=== PATIENT | male | born 1965 | race Caucasian/White ===

== ENCOUNTER 2018-06-15 09:27 | Outpatient (REF) | payer BC, SELFPAY ==
[2018-06-15 20:03] LABS: HCT 48.1 % (40.0-50.0); HGB 15.8 g/dL (13.5-17.5); Mean Corp. HGB Concentration 32.8 g/dL (32.0-36.0); Mean Corpuscular Hemoglobin 29.3 pg (27.0-33.0); Mean Corpuscular Volume 89.1 fL (80-95); Mean Platelet Volume 11.9 fL (8.0-11.0); Platelet Count 213 x1000/uL (130-400); RBC Distribution Width 13.1 % (11.8-14.1); White Blood Cell Count 10.14 k/cumm (4.4-10.8)
[2018-06-15 20:43] LABS: ALT 19 U/L (12-78); AST 8 U/L (15-37); Albumin 3.9 g/dL (3.4-5.0); Alkaline Phosphatase 72 U/L (46-116); Anion Gap 9.1 mmol/L (3-11); BUN 18 mg/dL (7-18); Bilirubin, Total 0.9 mg/dL (0.2-1.0); CO2 28.9 mmol/L (21.0-32.0); CREATININE 1.11 mg/dL (0.70-1.30); Chloride 105 mmol/L (98-107); Cholesterol 173 mg/dL (50-200); HDL Cholesterol 42 mg/dL (40-60); LDL CHOLESTEROL 116 mg/dL (<100); Potassium 3.9 mmol/L (3.5-5.1); Sodium 143 mmol/L (136-145); Total Protein 6.8 g/dL (6.4-8.2); Triglyceride 96 mg/dL (30-150)
[2018-06-15 21:04] LABS: Bilirubin, Direct 0.19 mg/dL (0.00-0.20); NT-proBNP 357 pg/mL
== END 2018-06-15 09:47 ==
LOC: LBN 09:27
PROVIDERS: PCP Physician Assistant; Visit Provider Internal Medicine Interventional Cardiology
DX: I10 Essential (primary) hypertension (principal); I71.9 Aortic aneurysm of unspecified site, without rupture; Q23.1 Congenital insufficiency of aortic valve
CPT/HCPCS: 80051; 80061; 80076; 83721; 84520; 85027; 82565; 83880

== ENCOUNTER 2018-07-03 09:59 | Outpatient (CLI) | payer BC, SELFPAY | END 2018-07-03 10:19 | PROVIDERS: PCP Physician Assistant Medical; Visit Provider Internal Medicine Interventional Cardiology | DX: I10 Essential (primary) hypertension (principal); I44.7 Left bundle-branch block, unspecified | CPT/HCPCS: 93005; 93010 ==

== ENCOUNTER 2018-09-25 16:36 | Outpatient (REF) | payer BC, SELFPAY ==
[2018-09-25 20:38] LABS: Anion Gap 9.2 mmol/L (3-11); BUN 19 mg/dL (7-18); CO2 29.8 mmol/L (21.0-32.0); CREATININE 0.95 mg/dL (0.70-1.30); Calcium 9.2 mg/dL (8.5-10.1); Chloride 103 mmol/L (98-107); Glucose 92 mg/dL (70-100); Sodium 142 mmol/L (136-145)
== END 2018-09-25 16:56 ==
LOC: NCHCN 16:36
PROVIDERS: PCP Physician Assistant; Visit Provider Physician Assistant Medical
DX: I25.10 Atherosclerotic heart disease of native coronary artery without angina pectoris (principal); I77.819 Aortic ectasia, unspecified site; Z95.818 Presence of other cardiac implants and grafts
CPT/HCPCS: 80048

== ENCOUNTER 2018-10-12 07:42 | Outpatient (REF) | payer BC, SELFPAY ==
[2018-10-12 19:36] LABS: Cholesterol 75 mg/dL (50-200); HDL Cholesterol 34 mg/dL (40-60); LDL CHOLESTEROL 32 mg/dL (<100); Triglyceride 42 mg/dL (30-150)
== END 2018-10-12 08:02 ==
LOC: NCHCN 07:42
PROVIDERS: PCP Physician Assistant; Visit Provider Physician Assistant Medical
DX: I10 Essential (primary) hypertension (principal); R01.1 Cardiac murmur, unspecified
CPT/HCPCS: 80061; 83721

== ENCOUNTER 2018-10-16 08:35 | Outpatient (CLI) | payer BC, SELFPAY | END 2018-10-16 08:55 | PROVIDERS: PCP Physician Assistant; Visit Provider Internal Medicine Interventional Cardiology | DX: I25.10 Atherosclerotic heart disease of native coronary artery without angina pectoris (principal); I10 Essential (primary) hypertension; I25.2 Old myocardial infarction | CPT/HCPCS: 93005; 93010 ==

== ENCOUNTER 2019-01-15 08:42 | Outpatient (CLI) | payer BC, SELFPAY | END 2019-01-15 09:02 | PROVIDERS: PCP Physician Assistant; Visit Provider Internal Medicine Interventional Cardiology | DX: I25.10 Atherosclerotic heart disease of native coronary artery without angina pectoris (principal); I25.2 Old myocardial infarction; I10 Essential (primary) hypertension; I45.4 Nonspecific intraventricular block | CPT/HCPCS: 93005; 93010 ==

== ENCOUNTER 2019-09-13 20:25 | Outpatient (REF) | payer BC, SELFPAY ==
[2019-09-13 19:01] LABS: ALT 32 U/L (16-63); AST 14 U/L (15-37); Alkaline Phosphatase 66 U/L (46-116); Anion Gap 6.9 mmol/L (3-11); BUN 28 mg/dL (7-18); Bilirubin, Total 1.1 mg/dL (0.2-1.0); CO2 32.1 mmol/L (21.0-32.0); CREATININE 1.05 mg/dL (0.70-1.30); Calcium 8.5 mg/dL (8.5-10.1); Calculated LDL 38 mg/dL (<100); Chloride 103 mmol/L (98-107); Cholesterol 87 mg/dL (<200); Glucose 90 mg/dL (74-106); HDL Cholesterol 41 mg/dL (40-60); Potassium 4.2 mmol/L (3.5-5.1); Sodium 142 mmol/L (136-145); TSH (W/Ref FT4) 1.31 uIU/mL (0.36-3.74); Total Protein 6.8 g/dL (6.4-8.2); Triglyceride 43 mg/dL (<150)
[2019-09-13 19:03] LABS: Abs Immature Grans 0.03 k/cumm (0.0-0.09); Absolute Basophil Count 0.04 k/cumm (0.0-0.2); Absolute Eosinophil Count 0.16 k/cumm (0.0-0.7); Absolute Monocyte Count 0.83 k/cumm (0.11-0.7); Absolute Neutrophil Count 8.26 k/cumm (1.2-6.7); Basophils % 0.4; Eosinophils % 1.4; HCT 45.4 % (40.0-50.0); HGB 15.3 g/dL (13.5-17.5); Immature Grans % 0.3 %; Lymphocytes % 16.9; Mean Corp. HGB Concentration 33.7 g/dL (32.0-36.0); Mean Corpuscular Hemoglobin 30.1 pg (27.0-33.0); Mean Corpuscular Volume 89.2 fL (80-95); Mean Platelet Volume 11.5 fL (8.0-11.0); Monocytes % 7.4; Neutrophils % 73.6; Platelet Count 199 x1000/uL (130-400); RBC 5.09 m/cumm (4.50-6.00); RBC Distribution Width 12.7 % (11.8-14.1); White Blood Cell Count 11.22 k/cumm (4.4-10.8)
== END 2019-09-13 20:45 ==
LOC: NCHCN 20:25
PROVIDERS: PCP Physician Assistant; Visit Provider Physician Assistant
DX: I10 Essential (primary) hypertension (principal); I25.10 Atherosclerotic heart disease of native coronary artery without angina pectoris; Z95.818 Presence of other cardiac implants and grafts
CPT/HCPCS: 80053; 80061; 84443; 85025

== ENCOUNTER 2022-09-28 18:54 | Outpatient (REF) | payer BC, SELFPAY ==
[2022-09-28 19:23] LABS: ALT 32 U/L (16-63); AST 18 U/L (15-37); Albumin 4.2 g/dL (3.4-5.0); Alkaline Phosphatase 86 U/L (46-116); BUN 33 mg/dL (7-18); Bilirubin, Total 0.8 mg/dL (0.2-1.0); CREATININE 1.2 mg/dL (0.70-1.30); Calcium 9.9 mg/dL (8.5-10.1); Chloride 107 mmol/L (98-107); Estimated GFR 70.98 (mL/min/1.73m2); Glucose 96 mg/dL (74-106); Hemoglobin A1C 5.6 % (<5.7); LDL CHOLESTEROL 50 mg/dL (<100); Potassium 4.7 mmol/L (3.5-5.1); Sodium 144 mmol/L (136-145); Total Protein 7.3 g/dL (6.4-8.2)
== END 2022-09-28 18:55 | disposition home or self-care (01) ==
LOC: NCHCN 18:54
PROVIDERS: PCP Physician Assistant; Visit Provider Physician Assistant
DX: I10 Essential (primary) hypertension (principal); I25.10 Atherosclerotic heart disease of native coronary artery without angina pectoris; E66.9 Obesity, unspecified
CPT/HCPCS: 80053; 83721; 83036

== ENCOUNTER 2023-04-29 08:31 | Outpatient (REF) | payer BC, SELFPAY ==
[2023-04-29 18:47] LABS: Abs Immature Grans 0.03 10^3/uL (0.0-0.06); Absolute Basophil Count 0.09 10^3/uL (0.0-0.2); Absolute Eosinophil Count 0.17 10^3/uL (0.0-0.7); Absolute Lymphocyte Count 1.76 10^3/uL (1.2-3.4); Absolute Neutrophil Count 7.93 10^3/uL (1.2-6.7); Basophils % 0.8; Eosinophils % 1.6; HCT 45.2 % (40.0-50.0); HGB 15.3 g/dL (13.5-17.5); Immature Grans % 0.3; Lymphocytes % 16.3; MCH 30.4 pg (27.0-33.0); MCHC 33.8 % (32.0-36.0); MCV 90 fL (80-95); MPV 11.3 fL (8.0-11.0); Monocytes % 7.4; Neutrophils % 73.6; Platelet Count 193 10^3/uL (130-400); RBC 5.04 10^6/uL (4.36-5.78); RDW 12.7 % (11.8-14.1); RDW-SD 41.5 fL; WBC 10.78 10^3/uL (4.4-10.8)
[2023-04-29 19:00] LABS: Anion Gap 8.8 mmol/L (3-11); BUN 36 mg/dL (7-18); CO2 26.2 mmol/L (21.0-32.0); CREATININE 1.5 mg/dL (0.70-1.30); Calcium 9.8 mg/dL (8.5-10.1); Chloride 104 mmol/L (98-107); Estimated GFR 53.96 (mL/min/1.73m2); Glucose 111 mg/dL (74-106); Potassium 4.5 mmol/L (3.5-5.1); Sodium 139 mmol/L (136-145)
== END 2023-04-29 08:32 | disposition home or self-care (01) ==
LOC: LBN 08:31
PROVIDERS: PCP Physician Assistant; Visit Provider Internal Medicine Cardiovascular Disease
DX: I35.1 Nonrheumatic aortic (valve) insufficiency (principal)
CPT/HCPCS: 80048; 85025

== ENCOUNTER 2024-01-11 09:14 | Outpatient (REF) | payer BC, SELFPAY ==
[2024-01-11 20:33] LABS: Bilirubin Negative (Negative); Blood Trace-intact (Negative); Clarity Clear (Clear); Glucose Negative (Negative); Ketones Negative (Negative); Leukocyte Esterase Negative (Negative); Nitrite Negative (Negative); Urobilinogen 0.2 mg/dL (Up to 0.2); pH 6.5 (5-8)
[2024-01-11 21:05] LABS: Bacteria Negative HPF (Negative); C & S Indicated? No; Casts Negative LPF (Negative); Crystals Negative HPF (Negative); Epithelial Cells Rare HPF (Negative); Mucus Negative (Negative); RBC 0-2 HPF (0-2); WBC 0-2 HPF (0-5)
== END 2024-01-11 09:15 | disposition home or self-care (01) ==
LOC: NCHCN 09:14
PROVIDERS: PCP Physician Assistant; Visit Provider Physician Assistant
DX: R31.21 Asymptomatic microscopic hematuria (principal)
CPT/HCPCS: 81003; 81015

== ENCOUNTER 2024-04-10 15:30 | Outpatient (REF) | payer BC, SELFPAY ==
[2024-04-10 19:42] LABS: Abs Immature Grans 0.03 10^3/uL (0.0-0.06); Absolute Basophil Count 0.07 10^3/uL (0.0-0.2); Absolute Eosinophil Count 0.32 10^3/uL (0.0-0.7); Absolute Lymphocyte Count 1.57 10^3/uL (1.2-3.4); Absolute Monocyte Count 0.69 10^3/uL (0.1-0.8); Basophils % 0.7 %; Eosinophils % 3.4 %; HCT 47.4 % (40.0-50.0); HGB 15.6 g/dL (13.5-17.5); Immature Grans % 0.3 %; Lymphocytes % 16.7 %; MCH 29.5 pg (27.0-33.0); MCHC 32.9 % (32.0-36.0); MCV 90 fL (80-95); MPV 11.7 fL (8.0-11.0); Monocytes % 7.4 %; Neutrophils % 71.5 %; Platelet Count 183 10^3/uL (130-400); RBC 5.29 10^6/uL (4.36-5.78); RDW 13.9 % (11.8-14.1); WBC 9.38 10^3/uL (4.4-10.8)
[2024-04-10 19:51] LABS: Estimated GFR 87.24 (mL/min/1.73m2)
[2024-04-10 19:57] LABS: ALT 27 U/L (16-63); AST 18 U/L (15-37); Albumin 3.7 g/dL (3.4-5.0); Alkaline Phosphatase 97 U/L (46-116); Anion Gap 10.5 mmol/L (3-11); BUN 22 mg/dL (7-18); Bilirubin, Total 1.06 mg/dL (0.2-1.0); CO2 25.5 mmol/L (21.0-32.0); Calculated LDL 38 mg/dL (<100); Chloride 108 mmol/L (98-107); Cholesterol 98 mg/dL (<200); Estimated GFR 87.24 (mL/min/1.73m2); Glucose 103 mg/dL (74-106); HDL Cholesterol 48 mg/dL (40-60); Potassium 3.7 mmol/L (3.5-5.1); Sodium 144 mmol/L (136-145); Total Protein 6.6 g/dL (6.4-8.2); Triglyceride 64 mg/dL (<150)
[2024-04-10 20:11] LABS: Hemoglobin A1C 5.1 % (<5.7)
== END 2024-04-10 15:31 | disposition home or self-care (01) ==
LOC: NCHCN 15:30
PROVIDERS: PCP Physician Assistant; Visit Provider Physician Assistant
DX: E78.5 Hyperlipidemia, unspecified (principal); I10 Essential (primary) hypertension
CPT/HCPCS: 80053; 80061; 82565; 83036; 85025

== ENCOUNTER 2025-01-10 16:52 | Outpatient (REF) | payer BC, SELFPAY ==
[2025-01-10 18:26] LABS: Abs Immature Grans 0.03 10^3/uL (0.0-0.06); Absolute Basophil Count 0.07 10^3/uL (0.0-0.2); Absolute Lymphocyte Count 2.28 10^3/uL (1.2-3.4); Absolute Monocyte Count 0.88 10^3/uL (0.1-0.8); Basophils % 0.6 %; Eosinophils % 1.8 %; HCT 48.7 % (40.0-50.0); HGB 16.2 g/dL (13.5-17.5); Immature Grans % 0.3 %; Lymphocytes % 20.5 %; MCH 29.5 pg (27.0-33.0); MCHC 33.3 % (32.0-36.0); MCV 89 fL (80-95); Monocytes % 7.9 %; Neutrophils % 68.9 %; Platelet Count 171 10^3/uL (130-400); RBC 5.49 10^6/uL (4.36-5.78); RDW 13.1 % (11.8-14.1); RDW-SD 42.5 fL
[2025-01-10 18:27] LABS: Absolute Neutrophil Count 7.65 10^3/uL (1.2-6.7)
[2025-01-10 18:48] LABS: ALT 26 U/L (16-63); AST 17 U/L (15-37); Alkaline Phosphatase 114 U/L (46-116); Anion Gap 6.4 mmol/L (3-11); BUN 31 mg/dL (7-18); Bilirubin, Total 0.8 mg/dL (0.2-1.0); CO2 28.6 mmol/L (21.0-32.0); CREATININE 1.1 mg/dL (0.70-1.30); Calcium 9.7 mg/dL (8.5-10.1); Chloride 105 mmol/L (98-107); Estimated GFR 77.33 (mL/min/1.73m2); Glucose 111 mg/dL (74-106); Potassium 3.4 mmol/L (3.5-5.1); Sodium 140 mmol/L (136-145); Total Protein 7.2 g/dL (6.4-8.2)
== END 2025-01-10 16:53 | disposition home or self-care (01) ==
LOC: NCHCN 16:52
PROVIDERS: PCP Physician Assistant; Visit Provider Physician Assistant
DX: I10 Essential (primary) hypertension (principal)
CPT/HCPCS: 80053; 85025